=== PATIENT | male | born 1955 | race Caucasian/White ===

== ENCOUNTER → 2020-10-27 08:46 | Outpatient (CLI) | payer OTHER ==
[2020-09-29 12:46] VITALS: BMI 26.9
[~2020-10-27 08:46] MED LIST: BACLOFEN10 MG PO; BACLOFEN20 M1 PO; CLARITIN 10 MG10 MG PO; COLACE100 MG PO; CYMBALTA60 MG PO; DICLOFENAC SODI50 MG PO; HYSINGLA ER20 MG; LOPRESSOR25 MG PO; MORPHINE IMMEDI15 MG PO; OPTIVE SENSITI1 EACH EACH EYE; PEPCID AC20 MG PO; REQUIP0.25 MG PO; TRELEGY ELLIPT1 EACH INH; UROCIT-K10 MEQ; VENTOLIN HFA [SP8 GM; VITAMIN D31250 MCG; VOLTAREN25 MG PO
== END | disposition home or self-care (01) ==
LOC: D.RAD 08:46
PROVIDERS: ATTEND Thoracic Surgery (Cardiothoracic Vascular Surgery)
DX: Z98.890 Other specified postprocedural states (principal)

== ENCOUNTER → 2021-01-14 10:48 | Outpatient (CLI) | payer OTHER ==
[2020-09-29 12:46] VITALS: BMI 26.9
== END | disposition home or self-care (01) ==
LOC: D.RT 10:30
PROVIDERS: ATTEND Internal Medicine Pulmonary Disease
DX: J44.9 Chronic obstructive pulmonary disease, unspecified (principal)